=== PATIENT | female | born 1975 | race Caucasian/White ===

== ENCOUNTER 2020-09-12 11:14 | Outpatient (CLI) | payer MEDICAID | END 2020-09-12 23:59 | disposition home or self-care (01) | LOC: LAB 11:14 | PROVIDERS: ATTEND Specialist | DX: Z01.812 Encounter for preprocedural laboratory examination (principal); Z20.822 Contact with and (suspected) exposure to COVID-19 | CPT/HCPCS: C9803; U0003 ==

== ENCOUNTER 2020-09-16 07:15 | Day surgery (SDC) | payer MEDICAID ==
[2020-09-16] MEDS ORDERED: VANCOMYCIN 1 GM VIAL ONE (08:01)
[2020-09-16] MEDS ORDERED: BACITRACIN 50000 UNITS/VIAL ONE (08:01)
[2020-09-16] MEDS ORDERED: BUPIVACAINE 0.5 % PF 150 MG/30 ML VIAL ONE (08:01)
[2020-09-16] MEDS ORDERED: ANESTHESIA TRAY IN PYXIS 1 EA TRAY MC ONE (08:01)
[2020-09-16] MEDS ORDERED: MIDAZOLAM HCL 2 MG/2ML VIAL ONE (09:17)
[2020-09-16] MEDS ORDERED: HYDROMORPHONE INJ 2 MG/ML DISP.SYRIN ONE (09:17)
[2020-09-16] MEDS ORDERED: MEPERIDINE HCL/PF 100 MG/2 ML AMPUL ONE (11:03)
[2020-09-16] MEDS ORDERED: FENTANYL PF 100MCG/2ML AMPUL ONE (11:03)
[2020-09-16] MEDS ORDERED: HYDROMORPHONE 1 MG/1 ML DISP.SYRIN ONE (11:15)
[2020-09-16] MEDS ORDERED: HYDROCODONE/APAP 5/325MG TABLET ONE (11:31)
== END 2020-09-16 13:00 | disposition home or self-care (01) ==
LOC: DS 07:15 → EDSTATUS 09:45 → DS 13:00
PROVIDERS: ATTEND Specialist
DX: S82.851A Displaced trimalleolar fracture of right lower leg, initial encounter for closed fracture (principal); E11.22 Type 2 diabetes mellitus with diabetic chronic kidney disease; N18.30 Chronic kidney disease, stage 3 unspecified; X58.XXXA Exposure to other specified factors, initial encounter; Y93.89 Activity, other specified; Y92.89 Other specified places as the place of occurrence of the external cause; Y99.8 Other external cause status; E11.21 Type 2 diabetes mellitus with diabetic nephropathy; E89.0 Postprocedural hypothyroidism; Z98.890 Other specified postprocedural states; Z79.899 Other long term (current) drug therapy; D64.9 Anemia, unspecified
CPT/HCPCS: 27822; 82962; 84703; A4217; A6253; A6402; C1713 ×5; C1769; J0690; J1100; J1170 ×2; J1885; J2250; J2405; J2704; J2765; J3010; J3490; J3370